=== PATIENT | female | born 1950 | race African-American/Black ===

== ENCOUNTER 2017-08-07 21:48 | Inpatient (IN) | payer MEDICARE, OTHER ==
[~2017-08-07] VITALS: Ht 165.1 cm; Wt 74.0 kg
[~2017-08-07 21:48] MED LIST: ALBU18HF2; AMLO10TA80 PO; ASPI-1158 PO; ATEN50TA PO; HYDR-4009; LOT10 PO; METF500T4 PO; OMEPRAZOLE; prednsione PO
[2017-08-07] MEDS ORDERED: MORPHINE SULFATE 4 MG/ML CPJ (NOT FOR IM USE) IV STA (23:26)
[2017-08-07] MEDS ORDERED: ONDANSETRON HCL 4MG/2ML VIAL IV STA (23:26)
[2017-08-07] MEDS ORDERED: NITROGLYCERIN OINT 1GM/INCH UDPKT TD ONE (23:30)
[2017-08-07] MEDS ORDERED: LABETALOL HCL 20MG/4ML CARPUJECT IV ONE (23:30)
[2017-08-07] MEDS ORDERED: ASPIRIN 81MG TABLET PO ONE (23:30)
[2017-08-08] VITALS (13 sets, daily range): BP systolic 141–182; BP diastolic 69–100
[2017-08-08] MEDS ORDERED: HYDRALAZINE 20MG/ML VIAL IV ONE
[2017-08-08 00:29] LABS: BASOPHILS % 0.9 % (0.0-2.0); EOSINOPHILS % 0.3 % (0.0-5.0); HEMOGLOBIN. 14.8 g/dL (12.0-16.0); LYMPHOCYTES % 32.4 % (20.0-50.0); MEAN CORPUSCULAR HEMOGLOBIN 28.6 pg (28.0-32.0); MEAN CORPUSCULAR VOLUME 84.7 fL (81.0-99.0); MEAN PLATELET VOLUME 8.3 fl (7.4-10.4); MONOCYTES % 5.2 % (2.0-8.0); NEUTROPHILS % 61.2 % (40.0-76.0); PLATELET 265 x1000/uL (130-400); RED BLOOD CELL COUNT 5.19 mill/uL (4.2-5.4); RED CELL DISTRIBUTION WIDTH 14.1 % (11.6-14.6)
[2017-08-08 00:39] LABS: INR 1.1; PARTIAL THROMBOPLASTIN TIME 27.1 sec (23.4-31.0); PROTHROMBIN TIME 11.1 sec (9.4-11.6)
[2017-08-08 01:08] LABS: CARBON DIOXIDE 26 mEq/L (21-32); CHLORIDE 102 mEq/L (98-107); ETHANOL BLOOD < 10 mg/dL
[2017-08-08 01:09] LABS: TROPONIN I < 0.02 ng/mL (0.00-0.04)
[2017-08-08] MEDS ORDERED: LEVETIRACETAM 1,000 MG in SODIUM CHLORIDE 0.9% 100 ML IV ONE (02:45)
[2017-08-08] MEDS ORDERED: POTASSIUM CHLORIDE 20MEQ TABLET SR PO SCH (06:30)
[2017-08-08] MEDS ORDERED: DEXTROSE 50% WATER 50ML SYRINGE IV PRN (06:30)
[2017-08-08] MEDS: ATENOLOL 50 MG TABLET PO SCH (07:07)
[2017-08-08] MEDS: BLOOD SUGAR DIAGNOSTIC STRIP TEST SCH ×4 (07:09→21:00)
[2017-08-08] MEDS: INSULIN LISPRO 100 UNITS/ML SUBCUT SCH ×4 (07:20→21:00)
[2017-08-08] MEDS: CLONIDINE 0.1MG TABLET PO PRN ×2 (09:04→21:11)
[2017-08-08] MEDS ORDERED: LABETALOL HCL 20MG/4ML CARPUJECT IV SCH (09:15)
[2017-08-08] MEDS ORDERED: ONDANSETRON HCL 4MG/2ML VIAL IV PRN (09:15)
[2017-08-08 10:03] LABS: BASOPHILS % 0.8 % (0.0-2.0); EOSINOPHILS % 0.2 % (0.0-5.0); HEMATOCRIT. 47.1 % (36.0-48.0); HEMOGLOBIN. 15.8 g/dL (12.0-16.0); LYMPHOCYTES % 31.2 % (20.0-50.0); MEAN CORPUSCULAR HEMOGLOBIN 29.2 pg (28.0-32.0); MEAN CORPUSCULAR VOLUME 87.3 fL (81.0-99.0); MEAN PLATELET VOLUME 8.4 fl (7.4-10.4); NEUTROPHILS % 59.8 % (40.0-76.0); PLATELET 228 x1000/uL (130-400); RED BLOOD CELL COUNT 5.39 mill/uL (4.2-5.4); RED CELL DISTRIBUTION WIDTH 14.4 % (11.6-14.6)
[2017-08-08] MEDS: BENAZEPRIL 10MG TABLET PO SCH (10:45)
[2017-08-08] MEDS: AMLODIPINE 5MG TABLET PO SCH ×2 (10:45→21:10)
[2017-08-08 10:49] LABS: CARBON DIOXIDE 28 mEq/L (21-32); CHLORIDE 103 mEq/L (98-107); HDL CHOLESTEROL 85 mg/dL (40-59); LDL CHOLESTEROL 160 mg/dL (5-100)
[2017-08-08] MEDS: POTASSIUM CHLORIDE 20MEQ TABLET SR PO SCH (15:41)
[2017-08-08] MEDS: MORPHINE SULFATE 4 MG/ML CPJ (NOT FOR IM USE) IV PRN ×2 (15:46→21:29)
[2017-08-08] MEDS: HYDRALAZINE HCL 50MG TABLET PO SCH ×2 (15:46→22:36)
[2017-08-08] MEDS: DEXT 5%/0.45% NACL KCL 20MEQ/L 1,000 ML IV SCH (15:47)
[2017-08-08] MEDS ORDERED: IOHEXOL-300 100 ML BOTTLE ONE (15:57)
[2017-08-08 16:53] LABS: CLARITY URINE CLEAR (CLEAR); COLOR URINE YELLOW (YELLOW); GLUCOSE URINE TRACE (NEGATIVE); KETONES URINE NEGATIVE (NEGATIVE); LEUKOCYTE ESTERASE URINE NEGATIVE (NEGATIVE); NITRITE URINE NEGATIVE (NEGATIVE); OCCULT BLOOD URINE NEGATIVE (NEGATIVE); PH URINE 6.5 (4.5-8.0); PROTEIN URINE TRACE (NEGATIVE)
[2017-08-08 17:07] LABS: *AMPHETAMINES SCREEN URINE NEGATIVE (NEGATIVE); *BARBITURATES SCREEN URINE NEGATIVE (NEGATIVE); *BENZODIAZEPINES SCREEN URINE NEGATIVE (NEGATIVE); *COCAINE SCREEN URINE PRESUMTIVE POSITIVE (NEGATIVE); CANNABINOID URINE SCREEN NEGATIVE (NEGATIVE); METHADONE URINE SCREEN NEGATIVE (NEGATIVE); OPIATES URINE SCREEN PRESUMTIVE POSITIVE (NEGATIVE); PHENCYCLIDINE URINE SCREEN NEGATIVE (NEGATIVE)
[2017-08-09] VITALS (12 sets, daily range): BP systolic 135–190; BP diastolic 64–96
[2017-08-09] MEDS: HYDRALAZINE HCL 50MG TABLET PO SCH ×3 (06:04→22:10)
[2017-08-09] MEDS: CLONIDINE 0.1MG TABLET PO PRN ×3 (06:05→21:09)
[2017-08-09] MEDS: MORPHINE SULFATE 4 MG/ML CPJ (NOT FOR IM USE) IV PRN ×2 (06:12→13:25)
[2017-08-09] MEDS: BLOOD SUGAR DIAGNOSTIC STRIP TEST SCH ×4 (06:50→20:56)
[2017-08-09] MEDS: INSULIN LISPRO 100 UNITS/ML SUBCUT SCH ×4 (07:20→20:56)
[2017-08-09] MEDS: ATENOLOL 50 MG TABLET PO SCH (09:44)
[2017-08-09] MEDS: POTASSIUM CHLORIDE 20MEQ TABLET SR PO SCH (09:50)
[2017-08-09] MEDS: BENAZEPRIL 10MG TABLET PO SCH (09:51)
[2017-08-09] MEDS: AMLODIPINE 5MG TABLET PO SCH ×2 (09:52→21:09)
[2017-08-09] MEDS: DEXT 5%/0.45% NACL KCL 20MEQ/L 1,000 ML IV SCH (09:53)
[2017-08-09 10:39] LABS: BASOPHILS % 1.1 % (0.0-2.0); EOSINOPHILS % 0.4 % (0.0-5.0); HEMATOCRIT. 42.2 % (36.0-48.0); HEMOGLOBIN. 14.2 g/dL (12.0-16.0); LYMPHOCYTES % 37.4 % (20.0-50.0); MEAN CORPUSCULAR HEMOGLOBIN 28.8 pg (28.0-32.0); MEAN CORPUSCULAR VOLUME 85.6 fL (81.0-99.0); MEAN PLATELET VOLUME 8.3 fl (7.4-10.4); MONOCYTES % 6.9 % (2.0-8.0); NEUTROPHILS % 54.2 % (40.0-76.0); PLATELET 224 x1000/uL (130-400); RED BLOOD CELL COUNT 4.93 mill/uL (4.2-5.4); RED CELL DISTRIBUTION WIDTH 14.1 % (11.6-14.6)
[2017-08-09 10:53] LABS: CARBON DIOXIDE 25 mEq/L (21-32); CHLORIDE 105 mEq/L (98-107)
[2017-08-09] MEDS ORDERED: CHOL400T15 PO (15:14)
[2017-08-09] MEDS: ACETAMINOPHEN 325MG TABLET PO PRN (21:08)
[2017-08-09] MEDS: ATORVASTATIN CALCIUM 20MG TABLET PO SCH (21:10)
[2017-08-10] VITALS (18 sets, daily range): BP systolic 122–184; BP diastolic 61–96
[2017-08-10] MEDS: CLONIDINE 0.1MG TABLET PO PRN ×3 (04:35→20:34)
[2017-08-10] MEDS: ACETAMINOPHEN 325MG TABLET PO PRN ×3 (04:35→22:16)
[2017-08-10] MEDS: HYDRALAZINE HCL 50MG TABLET PO SCH ×2 (06:07→14:14)
[2017-08-10] MEDS: MORPHINE SULFATE 4 MG/ML CPJ (NOT FOR IM USE) IV PRN ×3 (06:21→18:50)
[2017-08-10] MEDS: BLOOD SUGAR DIAGNOSTIC STRIP TEST SCH ×4 (06:50→20:43)
[2017-08-10 07:08] LABS: BASOPHILS % 0.9 % (0.0-2.0); EOSINOPHILS % 0.9 % (0.0-5.0); HEMATOCRIT. 40.9 % (36.0-48.0); HEMOGLOBIN. 13.7 g/dL (12.0-16.0); LYMPHOCYTES % 39.9 % (20.0-50.0); MEAN CORPUSCULAR HEMOGLOBIN 28.8 pg (28.0-32.0); MEAN CORPUSCULAR VOLUME 85.9 fL (81.0-99.0); MEAN PLATELET VOLUME 8.3 fl (7.4-10.4); MONOCYTES % 7.3 % (2.0-8.0); PLATELET 223 x1000/uL (130-400); RED BLOOD CELL COUNT 4.76 mill/uL (4.2-5.4); RED CELL DISTRIBUTION WIDTH 13.8 % (11.6-14.6)
[2017-08-10] MEDS: INSULIN LISPRO 100 UNITS/ML SUBCUT SCH ×4 (07:20→20:44)
[2017-08-10 07:56] LABS: CARBON DIOXIDE 24 mEq/L (21-32); CHLORIDE 104 mEq/L (98-107)
[2017-08-10] MEDS: DEXT 5%/0.45% NACL KCL 20MEQ/L 1,000 ML IV SCH (08:20)
[2017-08-10] MEDS: POTASSIUM CHLORIDE 20MEQ TABLET SR PO SCH (08:20)
[2017-08-10] MEDS: AMLODIPINE 5MG TABLET PO SCH ×2 (08:21→20:33)
[2017-08-10] MEDS: BENAZEPRIL 10MG TABLET PO SCH (08:22)
[2017-08-10] MEDS: ATENOLOL 50 MG TABLET PO SCH ×3 (08:22→12:48)
[2017-08-10] MEDS ORDERED: HYDRALAZINE HCL 100MG TABLET PO NR (16:45)
[2017-08-10] MEDS ORDERED: ATENOLOL 25MG TABLET PO NR (16:45)
[2017-08-10] MEDS ORDERED: DOXAZOSIN MESYLATE 2MG TABLET PO NR (18:00)
[2017-08-10] MEDS: ATORVASTATIN CALCIUM 20MG TABLET PO SCH (20:33)
[2017-08-10] MEDS: HYDRALAZINE HCL 100MG TABLET PO SCH (22:15)
[2017-08-11] VITALS (10 sets, daily range): BP systolic 116–188; BP diastolic 61–87
[2017-08-11] MEDS: HYDRALAZINE HCL 100MG TABLET PO SCH (06:24)
[2017-08-11] MEDS: CLONIDINE 0.1MG TABLET PO PRN (06:24)
[2017-08-11] MEDS: BLOOD SUGAR DIAGNOSTIC STRIP TEST SCH ×2 (06:32→12:00)
[2017-08-11] MEDS: INSULIN LISPRO 100 UNITS/ML SUBCUT SCH ×2 (07:20→12:20)
[2017-08-11] MEDS ORDERED: NIFEDIPINE XL 90MG TAB PO SCH (08:30)
[2017-08-11] MEDS: POTASSIUM CHLORIDE 20MEQ TABLET SR PO SCH (08:48)
[2017-08-11] MEDS ORDERED: BENAZEPRIL 20MG TABLET PO SCH (09:00)
[2017-08-11] MEDS ORDERED: DOXAZOSIN MESYLATE 2MG TABLET PO SCH (09:00)
[2017-08-11] MEDS ORDERED: ATENOLOL 50 MG TABLET PO SCH (09:00)
[2017-08-11] MEDS: ACETAMINOPHEN 325MG TABLET PO PRN (10:49)
[2017-08-12] MEDS ORDERED: NIFEDIPINE XL 90MG TAB PO SCH (09:00)
== END 2017-08-11 13:57 | disposition home or self-care (01) | DRG 199 ==
LOC: ER 22:16 → 3WST 08-08 02:39 → ENRESERV 08-08 02:46
PROVIDERS: ADMIT Internal Medicine Geriatric Medicine; ATTEND Internal Medicine Geriatric Medicine
DX: I16.0 Hypertensive urgency (principal); J81.0 Acute pulmonary edema; I10 Essential (primary) hypertension; R00.1 Bradycardia, unspecified; E11.9 Type 2 diabetes mellitus without complications; E87.6 Hypokalemia; R07.89 Other chest pain; M54.17 Radiculopathy, lumbosacral region; Z79.899 Other long term (current) drug therapy; G89.29 Other chronic pain; M19.90 Unspecified osteoarthritis, unspecified site; R10.9 Unspecified abdominal pain; E78.00 Pure hypercholesterolemia, unspecified; Z79.82 Long term (current) use of aspirin; Z79.84 Long term (current) use of oral hypoglycemic drugs; F14.23 Cocaine dependence with withdrawal
CPT/HCPCS: 36415; 70450; 71010; 72148; 74176; 74177; 80048; 80053; 80061; 80305; 81001; 82962; 83036; 83690; 83735; 83880; 84484; 85025; 85610; 85730; 93005; 93306; 93970; 96365; 96375; 97163; 99291; A4565; G0482; J0360; J1953; J2270; J2405; J3490; J7050; Q9967

== ENCOUNTER 2018-07-04 10:58 | Emergency (ER) | payer MEDICARE, MEDICAID ==
[~2018-07-04] VITALS: Ht 167.6 cm; Wt 84.0 kg
[~2018-07-04 10:58] MED LIST changes: -AMLO10TA80 PO; -ATEN50TA PO; +CHOL400T15 PO; -METF500T4 PO; +METF500T6 PO; -prednsione PO
[2018-07-04] MEDS ORDERED: ONDANSETRON HCL 4MG/2ML INJ IV STA (11:32)
[2018-07-04] MEDS ORDERED: MORPHINE SULFATE 4 MG/ML CPJ (NOT FOR IM USE) IV STA (11:32)
[2018-07-04] MEDS ORDERED: ASPIRIN 81MG TABLET PO ONE (11:45)
[2018-07-04] MEDS ORDERED: NITROGLYCERIN OINT 1GM/INCH UDPKT TD ONE (11:45)
[2018-07-04 11:55] VITALS: BP 118/71
[2018-07-04 12:37] LABS: BASOPHILS % 1.4 % (0.0-2.0); HEMATOCRIT. 41.3 % (36.0-48.0); HEMOGLOBIN. 14.2 g/dL (12.0-16.0); LYMPHOCYTES % 32.2 % (20.0-50.0); MEAN CORPUSCULAR HEMOGLOBIN 29.6 pg (28.0-32.0); MEAN CORPUSCULAR VOLUME 86.4 fL (81.0-99.0); MEAN PLATELET VOLUME 8.8 fl (7.4-10.4); MONOCYTES % 8.1 % (2.0-8.0); NEUTROPHILS % 56.3 % (40.0-76.0); PLATELET 251 x1000/uL (130-400); RED BLOOD CELL COUNT 4.79 mill/uL (4.2-5.4); RED CELL DISTRIBUTION WIDTH 15.5 % (11.6-14.6)
[2018-07-04 12:45] LABS: PARTIAL THROMBOPLASTIN TIME 26.7 sec (23.4-31.0); PROTHROMBIN TIME 10.3 sec (9.1-11.1)
[2018-07-04 12:48] LABS: CHLORIDE 103 mEq/L (98-107)
== END 2018-07-04 12:22 | disposition left against medical advice (07) ==
LOC: ER 10:58 → EDBEDREQ 12:53 → CANRESERV 13:14 → ENRESERV 13:14 → CANBEDREQ 18:59
DX: R07.9 Chest pain, unspecified (principal); R06.00 Dyspnea, unspecified; I10 Essential (primary) hypertension; E11.9 Type 2 diabetes mellitus without complications; M19.90 Unspecified osteoarthritis, unspecified site; Z79.899 Other long term (current) drug therapy; Z87.891 Personal history of nicotine dependence
CPT/HCPCS: 36415; 71045; 80053; 83880; 84484; 85025; 85610; 85730; 93005; 99291

== ENCOUNTER 2019-04-29 09:02 | Emergency (ER) | payer MEDICARE, MEDICAID ==
[~2019-04-29] VITALS: Ht 162.6 cm; Wt 64.0 kg
[~2019-04-29 09:02] MED LIST changes: +METF-414 PO; -METF500T6 PO
[2019-04-29] MEDS ORDERED: ALBUTEROL (0.083%) 2.5MG/3ML NEB HHN STA (09:11)
[2019-04-29] MEDS ORDERED: PREDNISONE 20MG TABLET PO STA (09:11)
[2019-04-29 10:44] VITALS: BP 174/111
== END 2019-04-29 11:03 | disposition home or self-care (01) ==
LOC: ER 09:02
DX: J44.1 Chronic obstructive pulmonary disease with (acute) exacerbation (principal); E11.9 Type 2 diabetes mellitus without complications; I10 Essential (primary) hypertension; M19.90 Unspecified osteoarthritis, unspecified site; Z79.899 Other long term (current) drug therapy; F17.290 Nicotine dependence, other tobacco product, uncomplicated
CPT/HCPCS: 71045; 93005; 94640; 99283; 99406; J7512; J7611

== ENCOUNTER 2019-05-01 06:46 | Emergency (ER) | payer MEDICARE, MEDICAID ==
[~2019-05-01] VITALS: Ht 162.6 cm; Wt 70.1 kg
[2019-05-01] MEDS ORDERED: IPRATROPIUM BROMIDE (0.02%) 0.5MG/2.5ML NEB HHN ONE (07:30)
[2019-05-01] MEDS ORDERED: PREDNISONE 20MG TABLET PO ONE (07:30)
[2019-05-01] MEDS ORDERED: ALBUTEROL (0.5%) 2.5MG/0.5ML NEB HHN ONE ×2 (07:30→07:47)
[2019-05-01] MEDS ORDERED: ALBUTEROL (0.083%) 2.5MG/3ML NEB ONE (07:47)
[2019-05-01] MEDS ORDERED: IPRATROPIUM BROMIDE (0.02%) 0.5MG/2.5ML NEB ONE (07:48)
[2019-05-01] MEDS ORDERED: ALBUTEROL 6.7GM HFA INHALER ORI ONE (10:45)
[2019-05-01 11:47] VITALS: BP 147/72
== END 2019-05-01 11:50 | disposition home or self-care (01) ==
LOC: ER 07:51
DX: J45.909 Unspecified asthma, uncomplicated (principal); E11.9 Type 2 diabetes mellitus without complications; I10 Essential (primary) hypertension; F12.10 Cannabis abuse, uncomplicated; Z87.891 Personal history of nicotine dependence; Z79.899 Other long term (current) drug therapy
CPT/HCPCS: 94640; 99283; J7512; J7611

== ENCOUNTER 2019-08-27 07:53 | Emergency (ER) | payer MEDICARE, MEDICAID ==
[~2019-08-27] VITALS: Ht 154.9 cm; Wt 66.0 kg
[2019-08-27] MEDS ORDERED: IPRATROPIUM BROMIDE (0.02%) 0.5MG/2.5ML NEB HHN STA (08:24)
[2019-08-27] MEDS ORDERED: METHYLPREDNISOLONE SOD SUCC 125 MG/2 ML VIAL IV STA (08:24)
[2019-08-27] MEDS ORDERED: ALBUTEROL (0.083%) 2.5MG/3ML NEB HHN STA (08:24)
[2019-08-27] MEDS ORDERED: MAGNESIUM 2 G PREMIX 50 ML IV ONE (08:30)
[2019-08-27 09:12] LABS: BASOPHILS % 0.9 % (0.0-2.0); EOSINOPHILS % 3.9 % (0.0-5.0); HEMATOCRIT. 39.6 % (36.0-48.0); HEMOGLOBIN. 13.4 g/dL (12.0-16.0); LYMPHOCYTES % 20.5 % (20.0-50.0); MEAN CORPUSCULAR HEMOGLOBIN 29.2 pg (28.0-32.0); MEAN CORPUSCULAR VOLUME 86.4 fL (81.0-99.0); MEAN PLATELET VOLUME 8.7 fl (7.4-10.4); MONOCYTES % 6.5 % (2.0-8.0); NEUTROPHILS % 68.2 % (40.0-76.0); PLATELET 233 x1000/uL (130-400); RED BLOOD CELL COUNT 4.58 mill/uL (4.2-5.4); RED CELL DISTRIBUTION WIDTH 14.8 % (11.6-14.6)
[2019-08-27 09:17] LABS: CHLORIDE 110 mEq/L (98-107)
[2019-08-27 11:24] VITALS: BP 163/75
== END 2019-08-27 11:25 | disposition home or self-care (01) ==
LOC: ER 07:53
DX: J45.901 Unspecified asthma with (acute) exacerbation (principal)
CPT/HCPCS: 36415; 71045; 80053; 83880; 84484; 85025; 93005; 94640; 96365; 96366; 96375; 99284; J2930; J3475; J7611